=== PATIENT | male | born 1975 | race Asian ===

== ENCOUNTER 2019-03-04 10:02 | Emergency (ER) | payer OTHER ==
[~2019-03-04] VITALS: Ht 180.3 cm; Wt 94.3 kg
[2019-03-04 10:12] VITALS: TEMP 98.1
[2019-03-04] MEDS ORDERED: HYDR5TAB9 PO (10:17)
[2019-03-04 12:43] VITALS: BP 118/74
== END 2019-03-04 12:45 | disposition home or self-care (01) ==
LOC: ED 10:02
DX: S39.012A Strain of muscle, fascia and tendon of lower back, initial encounter (principal); S16.1XXA Strain of muscle, fascia and tendon at neck level, initial encounter; S46.911A Strain of unspecified muscle, fascia and tendon at shoulder and upper arm level, right arm, initial encounter
CPT/HCPCS: 99283